=== PATIENT | male | born 1940 | race Caucasian/White ===

== ENCOUNTER 2022-08-09 14:56 | Inpatient (IN) | payer OTHER ==
[~2022-08-09] VITALS: Ht 127 cm; Wt 45.4 kg
[2022-08-09 15:09] VITALS: BP 117/47
[2022-08-09] MEDS ORDERED: PIPERACILLIN/TAZOBACTAM 3.375 GM in DEXTROSE 5% 50 ML IV ONE (15:10)
[2022-08-09] MEDS ORDERED: NACL 0.9% 1,000 ML IV ONE (15:10)
--- NOTE | 2022-08-09 15:29 | NUR ---
82 YO MALE BIBA FROM HOME FOR SACRAL WOUND AND PERINEAL RASH. 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 WOUND HAS CLOUDY PUSLIKE DISCHARGE. PT HAS BKA. PMH- HTN, DM, HIGH CHOLESTEROL MEDS- GABAPENTIN, NORCO, ATORVASTATION, CLOPIDOGREL, JANUVIA
[2022-08-09 16:01] LABS: BASOPHILS % (AUTO) 0.4 % (0.0-2.0); EOSINOPHILS # (AUTO) 0.1 K/uL (0-0.4); EOSINOPHILS % (AUTO) 0.6 % (0.0-4.0); HEMATOCRIT 31.9 % (36-52); HEMOGLOBIN 10.6 g/dL (12.0-18.0); LYMPHOCYTES # (AUTO) 1.6 K/uL (2.0-11.5); LYMPHOCYTES % (AUTO) 16.1 % (20.5-51.1); MEAN CORPUSCULAR HEMOGLOBIN 30 pg (27-31); MEAN CORPUSCULAR HGB CONC 33 g/dL (33-37); MONOCYTES # (AUTO) 0.6 K/uL (0.8-1.0); MONOCYTES % (AUTO) 6.1 % (1.7-9.3); NEUTROPHILS # (AUTO) 7.4 K/uL (1.8-7.7); NEUTROPHILS % (AUTO) 76.8 % (42.2-75.2); PLATELET COUNT (AUTO) 367 K/uL (140-450); RED BLOOD CELL COUNT(AUTO) 3.58 MIL/uL (4.20-6.10); RED CELL DISTRIBUTION WIDTH 16.1 % (11.6-13.7); WHITE BLOOD COUNT (AUTO) 9.7 K/uL (4.8-10.8)
--- NOTE | 2022-08-09 16:20 | NUR ---
PT TAKEN TO CT VIA [facility].
--- NOTE | 2022-08-09 16:39 | NUR ---
IV PULLED OUT DURING CT, PLACED NEW IV IN RAC
[2022-08-09 16:49] LABS: ALBUMIN 2.5 g/dL (3.4-5.0); ANION GAP 14.9 (8-16); ASPARTATE AMINOTRANSFERASE 51 U/L (15-37); CARBON DIOXIDE 21.2 mmol/L (21-32); CHLORIDE 109 mmol/L (98-107); CREATININE 1.4 mg/dL (0.6-1.3); GLUCOSE 224 mg/dL (74-106); POTASSIUM 5.1 mmol/L (3.5-5.1); SODIUM SERUM 140 mmol/L (136-145); TOTAL BILIRUBIN 0.5 mg/dL (0.0-1.0); UREA NITROGEN, BLOOD 53 mg/dL (7-18)
--- NOTE | 2022-08-09 17:15 | NUR ---
COVID SAMPLE OBTAINED AND SENT TO LAB
--- NOTE | 2022-08-09 17:31 | NUR ---
APS REPORT FILED. SPOKE WITH JULIUS [id number]
--- NOTE | 2022-08-09 18:11 | NUR ---
ATTEMPTED TO CONTACT PTS FOR UPDATE, NO ANSWER. UNABLE TO LEAVE VOICEMAIL
--- NOTE | 2022-08-09 19:30 | NUR ---
ASSUMED CARE OF PT AT THIS TIME. PT IN POSITION OF COMFORT. DENIES ANY PAIN OR NEEDS AT THIS TIME. UPDATED PT ON POC WITH FULL RETURNED VERBAL UNDERSTANDING. AWAITING BED ASSIGNMENT. VSS
--- NOTE | 2022-08-09 21:30 | NUR ---
Patient appears to be resting comfortably in bed. Vital Signs within normal limits. Respirations even and unlabored.
[2022-08-09 22:21] LABS: APPEARANCE,URINE CLEAR (CLEAR); BILIRUBIN,URINE NEGATIVE (NEGATIVE); BLOOD, URINE 1+ (NEGATIVE); COLOR,URINE YELLOW (YELLOW); LEUKOCYTE ESTERASE ,URINE TRACE (NEGATIVE); NITRITE, URINE NEGATIVE (NEGATIVE); PH,URINE 5.5 (5.0-9.0); UGLUCOSE NEGATIVE (NEGATIVE)
[2022-08-09 22:30] LABS: URINE AMORPHOUS URATE 1+ /HPF (None Seen)
[2022-08-10] MEDS ORDERED: VANCOMYCIN PER PHARMACY MC PRN (00:10)
[2022-08-10] MEDS ORDERED: MAGNESIUM OXIDE 400 MG TAB PO PRN (00:10)
[2022-08-10] MEDS ORDERED: MAG SULF 2000 MG/WATER PREMIX 50 ML IV PRN (00:10)
[2022-08-10] MEDS ORDERED: POTASSIUM CHLORIDE 10 MEQ TABER PO PRN (00:10)
[2022-08-10] MEDS ORDERED: ACETAMINOPHEN 325 MG TAB PO PRN (00:10)
[2022-08-10] MEDS ORDERED: MORPHINE SULFATE 4 MG/ML SYR IVP PRN (00:10)
[2022-08-10] MEDS ORDERED: ONDANSETRON 4 MG/2 ML VIAL IVP PRN (00:10)
[2022-08-10] MEDS ORDERED: KCL 20 MEQ/WATER INJ PREMIX 200 ML IV PRN (00:10)
[2022-08-10] MEDS ORDERED: HYDROcodone/APAP 5/325 MG 1 TAB TAB PO PRN (00:10)
--- NOTE | 2022-08-10 00:30 | NUR ---
Patient appears to be resting comfortably in bed. Vital Signs within normal limits. Respirations even and unlabored.
[2022-08-10] MEDS: NACL 0.9% 1,000 ML IV SCH ×2 (01:00→11:42)
[2022-08-10] MEDS ORDERED: VANCOMYCIN 500 MG in DEXTROSE 5% 100 ML IV SCH (02:00)
--- NOTE | 2022-08-10 02:03 | NUR ---
PT CLEANED, NEW DRESSING PLACED TO COCCYX. REPOSITIONED AND WARM BLANKETS PROVIDED. VSS PT DENIES ANY PAIN AT THIS TIME.
[2022-08-10] MEDS ORDERED: cefTRIAXone 1,000 MG VIAL ONE (02:06)
--- NOTE | 2022-08-10 03:30 | NUR ---
Patient appears to be resting comfortably in bed. Vital Signs within normal limits. Respirations even and unlabored.
--- NOTE | 2022-08-10 05:00 | NUR ---
Patient appears to be resting comfortably in bed. Vital Signs within normal limits. Respirations even and unlabored.
--- NOTE | 2022-08-10 07:25 | NUR ---
Report received from PAULO Monk.
--- NOTE | 2022-08-10 07:25 | NUR ---
REPORT TO FOX BATES
--- NOTE | 2022-08-10 08:30 | NUR ---
Patient will be admitted to care of Dr. Nesbitt. Admited to Med/Surg. Will go to room 124B. Belongings list completed. Report to PAULO Mabry.
[2022-08-10] MEDS ORDERED: VANCOMYCIN 750 MG in DEXTROSE 5% 250 ML IV SCH (09:00)
--- NOTE | 2022-08-10 09:00 | NUR ---
Admitted from , with chief complaint of , 82 y/o ,Male, Appropriate, oriented to call light, bed, phone,television, bathroom, smoking policy, visiting hours, procedures, ID bracelet on. Belongings list checked. patient received from er via gurney by one of avel koenig/Duniax4 , vss , skin not intact , on iv fluid , on room air with right ac 20 keith iv intact , safety on place side rails up x3 , bed on lower position , call light within reach still under observe .
[2022-08-10 11:47] VITALS: BP 106/58
[2022-08-10] MEDS: SKINTEGRITY HYDROGEL TP SCH (13:56)
[2022-08-10] MEDS: Z-GUARD PASTE TP SCH (13:56)
[2022-08-10] MEDS: ALGINATE ROPE MC SCH (13:56)
--- NOTE | 2022-08-10 14:17 | NUR ---
NURSES NOTE PATIENT STILL THE SAME , DRESSING ON HIS WOUND DONE , STILL UNDER OBSERVE
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
--- NOTE | 2022-08-10 16:31 | NUR ---
PATIENT HAS BEEN SCREENED AND CATEGORIZED MODERATE NUTRITION RISK. PATIENT WILL BE SEEN WITHIN 3-5 DAYS OF ADMISSION. REVIEWED BY ARIC MEDINA RD
--- NOTE | 2022-08-10 16:33 | NUR ---
WOUND CARE EVALUATION NOTE: SKIN ASSESSMENT DONE ON THIS 82 Y/O PT ADMITTED WITH PRESSURE INJURIES. WOUND HX OBTAIN FROM AC. PT. WITH CHRONIC WOUNDS, DOES WOUND CARE BY HERSELF, NO HOME HEALTH FOR WOUND CARE. POC EXPLAIN TO PT AND , RECOMMEND SURGEON AND UROLOGIST SACRAL DEBRIDEMENT AND POSSIBLE SUPRAPUBIC CATH. ALSO RECOMMEND SHORT TERM SNF FOR WOUND CARE. POC DISCUSSED WITH DR. SONG. AT STATION. POC DISCUSSED WITH PT. WHO SPEAKS GEORGIAN AND VERBALIZES UNDERSTAND. ELADIO, PT, TRANSLATE ABOVE INFORMATION IN MALTESE AND VERBALIZES UNDERSTANDING. PT IS AWAKE, MADE NEEDS KNOW VERBALLY. ABLE TO TURN AND REPOSITION. SKIN IS WARM AND MOIST, BILATERAL LOWER EXTREMITY AKA. F/C PATENT. POC DISCUSSED WITH PRIMARY RN. INTEGUMENTARY: -LIPS ARE DRY, INTACT -SIMULATION TECH RELATED ULCERATION TO PENIS 6X2X0.5CM FULL THICKNESS SKIN LOSS WOUND BED PINK, SMALL AMOUNT PURULENT DRAINAGE, MILD ODOR, SURENDRA-WOUND SKIN MOIST, PAIN 0/10 -PRESSURE INJURY STAGE 4 SACROCOCCYX [id number], WOUND BED 100% RED WITH SCATTER YELLOW SLOUGH TISSUE, UNDERMINING 3OCLOCK TO 9 OCLOCK, 2CM DEEP, MOIST, MILD ODOR, WOUND EDGE FLAT WITH DTI, SURENDRA-WOUND SKIN UN-STAGEABLE EXYENDED TO RIGHT BUTTOCK 5X7CM,DENUDED SKIN WITH SURROUNDING DTI INDICATED FURTHER DAMAGE RECOMMENDATIONS: -SURGEON AND UROLOGIST CONSULT -CLEANSE PENIS ULCERATION WITH WOUND CLEANSING SOLUTION, PAT DRY, APPLY ALGINATE ROPE DRESSING AND COVER WITH DRY DRESSING SECURED WITH TAPE QD AND PRN IF SOILING -CLEANSE SACRALCOCCYX WOUND WITH WOUND CARE SOLUTION, PAT DRY, APPLY HYDRAGEL WITH OIL EMULSION DRESSING, PACK FROM UNDERMINING, APPLY Z GUARD TO SURENDRA-WOUND SKIN AND COVER WITH ABD PAD AND SECURE WITH TAPE CHANGE DAILY AND PRN IF SOILING -POSITIONING: TURN AND REPOSITION PATIENT Q 2H OR SOONER USE PILLOWS TO KEEP BONY PROMINENCES FROM DIRECT CONTACT WITH SURFACES USE REPOSITIONING WEDGES TO PROVIDE 30-DEGREE ANGLE FOR SIDE LYING POSITIONS OFFLOADING OR FOAM DRESSING TO ALL TUBING TO PREVENT MEDICAL DEVICES RELATED PRESSURE INJURY -RE-EVALUATING AND MANAGING INCONTINENCE MONITOR SKIN CONDITION DURING POSITION CHANGE DO NOT MASSAGE REDNESS, BONY PROMINENCES FREQUENT SURENDRA-CARE AND PROVIDE BARRIER CREAMS PRN IF SOILING MOISTURE CONTROL BY OFFER BED ROPER/URINAL /ABSORBENT PAD TO WICK AND HOLD MOISTURE KEEP SKIN DRY AND PROTECT FROM FRICTION -MANAGE FRICTION/SHEAR/MOBILITY KEEP HOB AT THE LOWEST LEVEL OF ELEVATION NO MORE THAN 30-DEGREE UNLESS OTHERWISE CONTRAINDICATED USE LIFT SHEET OR TRANSFER DEVICE TO MOVE PATIENT AND PREVENT LATERAL SHEER. PROTECT HEELS, ELBOWS BONY PROMINENCES WITH SKIN BERRIES OR FOAM DRESSING IF EXPOSED TO FRICTION OFFLOAD BILATERAL HEELS BY PLACING PILLOWS UNDER CALVES AT ALL TIMES, UNLESS OTHERWISE CONTRAINDICATED -PRESSURE REDISTRIBUTION SURFACE THERAPY TANK MATTRESS -NUTRITION: PLEASE FOLLOW RD RECOMMENDATIONS AND OFFER NUTRITION SUPPLEMENTS IF ORDERED.
[2022-08-10 17:22] VITALS: BP 140/68
--- NOTE | 2022-08-10 17:53 | NUR ---
NURSES NOTE PATIENT A/OX4 , VSS , MED SURGE , DRESSING ON HIS WOUND DONE , NPO EXCEPT MEDS ON IV FLUID N/S 0.9 75CC/H , STILL UNDER OBSERVE.
--- NOTE | 2022-08-10 19:32 | NUR ---
REPORT GIVEN TO RED BATES , ALL HER QUESTION ANSWER .
--- NOTE | 2022-08-10 19:33 | NUR ---
RECEIVED PT FROM MORNING SHIFT NURSE. PT IS AOX2-3, AND BEDBOUND. PT IS ON ROOM AIR AND ON NPO EXCEPT MEDS. PT HAS KILPATRICK CATHETER AND HAS IV ON RIGHT AC GAUGE 20 SALINE LOCK AND LEFT HAND GAUGE 20 RUNNING WITH NS AT 80. PT HAS A BELOW THE KNEE AMPUTATION AND HAS WOUND ON SACRAL, SCROTUM AND PENIS. NO S/S RESPIRATORY DISTRESS NOTED. ALL SAFETY MEASURES IMPLEMENTED. BED IN LOW POSITION, BED WHEELS ON LOCKED AND CALL LIGHT WITHIN REACH.
[2022-08-10 20:00] VITALS: BP 117/47
--- NOTE | 2022-08-10 22:00 | NUR ---
FIXED PT'S IV PUMP DUE TO CONTINUOUSLY BEEPING. IV AND IV PUMP IS NOW RUNNING SMOOTHLY. NO COMPLAIN OF PAIN AT THIS TIME. NO S/S RESPIRATORY DISTRESS NOTED. ALL SAFETY MEASURES IMPLEMENTED. BED IN LOW POSITION, BED WHEELS ON LOCKED AND CALL LIGHT WITHIN REACH.
--- NOTE | 2022-08-11 00:52 | NUR ---
SCHEDULED AND PRESCRIBED MEDICATION WAS GIVEN TO PT PER MD ORDER. ALL SAFETY MEASURES IMPLEMENTED. BED IN LOW POSITION, BED WHEELS ON LOCKED AND CALL LIGHT WITHIN REACH.
[2022-08-11] MEDS: Z-GUARD PASTE TP SCH ×2 (00:53→13:49)
[2022-08-11] MEDS: NACL 0.9% 1,000 ML IV SCH ×2 (01:22→13:50)
--- NOTE | 2022-08-11 02:00 | NUR ---
PT IS SLEEPING. CHEST RISE AND FALL SYMMETRICALLY NOTED. RESPIRATION IS EVEN AND UNLABORED. ALL SAFETY MEASURES IMPLEMENTED. BED IN LOW POSITION, BED WHEELS ON LOCKED AND CALL LIGHT WITHIN REACH.
--- NOTE | 2022-08-11 04:00 | NUR ---
INSERTED NEW IV ON RIGHT WRIST GAUGE 22. IV IS NOW PATENT AND INTACT. NO COMPLAIN OF PAIN AT THIS TIME. ALL SAFETY MEASURES IMPLEMENTED. BED IN LOW POSITION, BED WHEELS ON LOCKED AND CALL LIGHT WITHIN REACH.
[2022-08-11 05:35] LABS: BASOPHILS % (AUTO) 0.4 % (0.0-2.0); EOSINOPHILS # (AUTO) 0.1 K/uL (0-0.4); EOSINOPHILS % (AUTO) 0.9 % (0.0-4.0); HEMATOCRIT 27.6 % (36-52); HEMOGLOBIN 9.4 g/dL (12.0-18.0); LYMPHOCYTES # (AUTO) 1.4 K/uL (2.0-11.5); LYMPHOCYTES % (AUTO) 16.9 % (20.5-51.1); MEAN CORPUSCULAR HEMOGLOBIN 30 pg (27-31); MEAN CORPUSCULAR HGB CONC 34 g/dL (33-37); MEAN CORPUSCULAR VOLUME 88.4 fL (80-94); MONOCYTES # (AUTO) 0.5 K/uL (0.8-1.0); MONOCYTES % (AUTO) 6.4 % (1.7-9.3); NEUTROPHILS # (AUTO) 6.2 K/uL (1.8-7.7); NEUTROPHILS % (AUTO) 75.4 % (42.2-75.2); PLATELET COUNT (AUTO) 325 K/uL (140-450); RED BLOOD CELL COUNT(AUTO) 3.12 MIL/uL (4.20-6.10); RED CELL DISTRIBUTION WIDTH 15.8 % (11.6-13.7); WHITE BLOOD COUNT (AUTO) 8.2 K/uL (4.8-10.8)
[2022-08-11 06:33] LABS: ALBUMIN 2.3 g/dL (3.4-5.0); ANION GAP 14.1 (8-16); CARBON DIOXIDE 20.3 mmol/L (21-32); CHLORIDE 113 mmol/L (98-107); GLUCOSE 168 mg/dL (74-106); MAGNESIUM 2.1 mg/dL (1.8-2.4); POTASSIUM 4.4 mmol/L (3.5-5.1); SODIUM SERUM 143 mmol/L (136-145); TOTAL BILIRUBIN 0.2 mg/dL (0.0-1.0); UREA NITROGEN, BLOOD 38 mg/dL (7-18)
[2022-08-11 06:45] LABS: ASPARTATE AMINOTRANSFERASE 34 U/L (15-37)
--- NOTE | 2022-08-11 07:30 | NUR ---
PT IS STABLE. ENDORSED PT TO MORNING SHIFT NURSE FOR CONTINUITY OF CARE.
[2022-08-11 08:00] VITALS: BP 136/61
[2022-08-11] MEDS: SKINTEGRITY HYDROGEL TP SCH (13:49)
[2022-08-11] MEDS: ALGINATE ROPE MC SCH (13:49)
[2022-08-11 16:00] VITALS: BP 136/61
[2022-08-11] MEDS: VANCOMYCIN 1,000 MG in DEXTROSE 5% 250 ML IV SCH (16:12)
--- NOTE | 2022-08-11 19:30 | NUR ---
ENDORSED A.M NURSE FOR CONTINUITY OF CARE. DAUGHTER THERESE AT BEDSIDE. PT A/OX1-2 CONFUSED. DAUGHTER STATES GIVING HIM MEDS TO CALM HI DOWN MAKES HIM MORE RESTLESS AND CONFUSED. REMINDED TO NOT PULL AT LINES. LINES WRAPPED IN LUIS F WRAP. DENIES PAIN. SAFETY PRECAUTIONS IN PLACE.
[2022-08-11 20:00] VITALS: BP 133/58
[2022-08-12] MEDS: Z-GUARD PASTE TP SCH ×2 (01:00→15:47)
[2022-08-12] MEDS: NACL 0.9% 1,000 ML IV SCH ×2 (02:10→15:46)
[2022-08-12 06:07] LABS: BASOPHILS % (AUTO) 0.4 % (0.0-2.0); EOSINOPHILS # (AUTO) 0.1 K/uL (0-0.4); EOSINOPHILS % (AUTO) 0.9 % (0.0-4.0); HEMATOCRIT 26.6 % (36-52); HEMOGLOBIN 9.1 g/dL (12.0-18.0); LYMPHOCYTES # (AUTO) 1.3 K/uL (2.0-11.5); LYMPHOCYTES % (AUTO) 19.4 % (20.5-51.1); MEAN CORPUSCULAR HEMOGLOBIN 30 pg (27-31); MEAN CORPUSCULAR HGB CONC 34 g/dL (33-37); MEAN CORPUSCULAR VOLUME 88.3 fL (80-94); MONOCYTES # (AUTO) 0.5 K/uL (0.8-1.0); MONOCYTES % (AUTO) 7.9 % (1.7-9.3); NEUTROPHILS # (AUTO) 4.8 K/uL (1.8-7.7); NEUTROPHILS % (AUTO) 71.4 % (42.2-75.2); PLATELET COUNT (AUTO) 326 K/uL (140-450); RED BLOOD CELL COUNT(AUTO) 3.01 MIL/uL (4.20-6.10); RED CELL DISTRIBUTION WIDTH 15.6 % (11.6-13.7); WHITE BLOOD COUNT (AUTO) 6.8 K/uL (4.8-10.8)
[2022-08-12 06:56] LABS: ALBUMIN 2.3 g/dL (3.4-5.0); ANION GAP 12.9 (8-16); ASPARTATE AMINOTRANSFERASE 24 U/L (15-37); CARBON DIOXIDE 21.3 mmol/L (21-32); CHLORIDE 114 mmol/L (98-107); CREATININE 0.8 mg/dL (0.6-1.3); GLUCOSE 117 mg/dL (74-106); MAGNESIUM 1.8 mg/dL (1.8-2.4); POTASSIUM 4.2 mmol/L (3.5-5.1); SODIUM SERUM 144 mmol/L (136-145); TOTAL BILIRUBIN 0.4 mg/dL (0.0-1.0); UREA NITROGEN, BLOOD 24 mg/dL (7-18)
--- NOTE | 2022-08-12 07:30 | NUR ---
ENDORSED TO RETURNING A.M NURSE PT PULLED IV LINE OUT AT 0640. REMAINS SAME. RELINQUISHED CARE OF PT AT THIS TIME.
[2022-08-12 08:00] VITALS: BP 155/86
[2022-08-12] MEDS: VANCOMYCIN 1,000 MG in DEXTROSE 5% 250 ML IV SCH (09:31)
[2022-08-12] MEDS: SKINTEGRITY HYDROGEL TP SCH (15:46)
[2022-08-12] MEDS: ALGINATE ROPE MC SCH (15:46)
[2022-08-12 16:00] VITALS: BP 145/70
--- NOTE | 2022-08-12 22:15 | NUR ---
CT ABDOMEN AND PELVIS WITHOUT CONTRAST DONE. PATIENT AWAKE ON ROOM AIR. NO SOB. BREATHING REGULAR NON LABORED. DENIES PAIN. AFEBRILE. CALL LIGHT WITHIN REACH. SAFETY MEASURES IN PLACE.
[2022-08-13] VITALS: BP 132/58
[2022-08-13] MEDS: Z-GUARD PASTE TP SCH ×2 (01:11→14:31)
[2022-08-13] MEDS: NACL 0.9% 1,000 ML IV SCH ×2 (03:10→15:40)
[2022-08-13 03:42] LABS: BASOPHILS % (AUTO) 0.3 % (0.0-2.0); EOSINOPHILS # (AUTO) 0.1 K/uL (0-0.4); EOSINOPHILS % (AUTO) 1.7 % (0.0-4.0); HEMATOCRIT 28.2 % (36-52); HEMOGLOBIN 9.4 g/dL (12.0-18.0); LYMPHOCYTES # (AUTO) 1.9 K/uL (2.0-11.5); MEAN CORPUSCULAR HEMOGLOBIN 30 pg (27-31); MEAN CORPUSCULAR HGB CONC 34 g/dL (33-37); MEAN CORPUSCULAR VOLUME 88.5 fL (80-94); MONOCYTES # (AUTO) 0.7 K/uL (0.8-1.0); NEUTROPHILS # (AUTO) 4.6 K/uL (1.8-7.7); PLATELET COUNT (AUTO) 315 K/uL (140-450); RED BLOOD CELL COUNT(AUTO) 3.18 MIL/uL (4.20-6.10); RED CELL DISTRIBUTION WIDTH 16.1 % (11.6-13.7); WHITE BLOOD COUNT (AUTO) 7.4 K/uL (4.8-10.8)
[2022-08-13 04:00] LABS: ALBUMIN 2.2 g/dL (3.4-5.0); ANION GAP 14.1 (8-16); ASPARTATE AMINOTRANSFERASE 22 U/L (15-37); CARBON DIOXIDE 19.6 mmol/L (21-32); CHLORIDE 115 mmol/L (98-107); CREATININE 0.8 mg/dL (0.6-1.3); GLUCOSE 102 mg/dL (74-106); MAGNESIUM 1.6 mg/dL (1.8-2.4); POTASSIUM 3.7 mmol/L (3.5-5.1); SODIUM SERUM 145 mmol/L (136-145); TOTAL BILIRUBIN 0.3 mg/dL (0.0-1.0); UREA NITROGEN, BLOOD 17 mg/dL (7-18)
[2022-08-13 04:31] LABS: PROTHROMBIN TIME 11.5 secs (10.8-13.4)
--- NOTE | 2022-08-13 07:46 | NUR ---
ENDORSED TO AM NURSE FOR CONTINUITY OF CARE. PATIENT STABLE. FOR EGD TODAY UNDER DR GUEVARA. PRE OP CHECKLIST DONE.
[2022-08-13 08:00] VITALS: BP 110/40
[2022-08-13] MEDS: VANCOMYCIN 1,000 MG in DEXTROSE 5% 250 ML IV SCH (09:35)
[2022-08-13] MEDS ORDERED: MIDAZOLAM 2 MG/2 ML VIAL ONE (09:38)
[2022-08-13] MEDS ORDERED: fentaNYL citrate 0.05 MG/ML VIAL ONE (09:38)
[2022-08-13] MEDS ORDERED: fentaNYL citrate 0.05 MG/ML VIAL IVP ONE (10:45)
[2022-08-13] MEDS ORDERED: MIDAZOLAM 2 MG/2 ML VIAL IVP ONE (10:45)
[2022-08-13 13:07] VITALS: BP 133/71
[2022-08-13] MEDS: ALGINATE ROPE MC SCH (14:30)
[2022-08-13] MEDS: SKINTEGRITY HYDROGEL TP SCH (14:31)
[2022-08-13] MEDS ORDERED: TPN PER PHARMACY MC PRN (15:05)
[2022-08-13 16:00] VITALS: BP 145/70
[2022-08-13] MEDS: LANSOPRAZOLE 30 MG CAPDR PO SCH (17:05)
[2022-08-13 20:00] VITALS: BP 123/66
[2022-08-13] MEDS: SUCRALFATE 1 GM TAB PO SCH (20:39)
[2022-08-14] MEDS: Z-GUARD PASTE TP SCH ×2 (01:16→13:00)
--- NOTE | 2022-08-14 01:28 | NUR ---
COVERING RN WAS INFORMED OF IV MEDICATION DUE. [email or web address]
[2022-08-14] MEDS: NACL 0.9% 1,000 ML IV SCH ×2 (04:10→16:52)
--- NOTE | 2022-08-14 04:12 | NUR ---
PATIENT WAS WASHED AND KEPT CLEAN. NEW DRESSING WERE APPLIED TO WOUNDS TO THE SACRAL, SCROTUM, AND RIGHT BUTTOCKS. [email or web address]
[2022-08-14 06:11] LABS: BASOPHILS % (AUTO) 0.5 % (0.0-2.0); EOSINOPHILS # (AUTO) 0.1 K/uL (0-0.4); EOSINOPHILS % (AUTO) 1.1 % (0.0-4.0); HEMATOCRIT 24.6 % (36-52); HEMOGLOBIN 8.3 g/dL (12.0-18.0); LYMPHOCYTES # (AUTO) 1.9 K/uL (2.0-11.5); LYMPHOCYTES % (AUTO) 26.3 % (20.5-51.1); MEAN CORPUSCULAR HEMOGLOBIN 30 pg (27-31); MEAN CORPUSCULAR HGB CONC 34 g/dL (33-37); MONOCYTES # (AUTO) 0.6 K/uL (0.8-1.0); MONOCYTES % (AUTO) 8.3 % (1.7-9.3); NEUTROPHILS # (AUTO) 4.7 K/uL (1.8-7.7); NEUTROPHILS % (AUTO) 63.8 % (42.2-75.2); PLATELET COUNT (AUTO) 290 K/uL (140-450); RED BLOOD CELL COUNT(AUTO) 2.77 MIL/uL (4.20-6.10); RED CELL DISTRIBUTION WIDTH 15.9 % (11.6-13.7); WHITE BLOOD COUNT (AUTO) 7.3 K/uL (4.8-10.8)
[2022-08-14 06:23] LABS: ANION GAP 12.1 (8-16); ASPARTATE AMINOTRANSFERASE 18 U/L (15-37); CARBON DIOXIDE 20.8 mmol/L (21-32); CHLORIDE 114 mmol/L (98-107); CREATININE 1.3 mg/dL (0.6-1.3); GLUCOSE 116 mg/dL (74-106); MAGNESIUM 1.5 mg/dL (1.8-2.4); POTASSIUM 3.9 mmol/L (3.5-5.1); SODIUM SERUM 143 mmol/L (136-145); TOTAL BILIRUBIN 0.3 mg/dL (0.0-1.0); UREA NITROGEN, BLOOD 16 mg/dL (7-18)
[2022-08-14] MEDS ORDERED: BOWEL EVACUANT DRINK 4,000 ML PDS PO SCH (07:00)
--- NOTE | 2022-08-14 07:04 | NUR ---
ENDORSED TO SANCHEZ BATES, PATIENT WAS STABLE DURING SHIFT REPORT. [email or web address]
[2022-08-14] MEDS: LANSOPRAZOLE 30 MG CAPDR PO SCH ×2 (07:30→16:51)
[2022-08-14 08:00] VITALS: BP 120/47
[2022-08-14] MEDS: VANCOMYCIN 1,000 MG in DEXTROSE 5% 250 ML IV SCH (09:00)
[2022-08-14] MEDS: SUCRALFATE 1 GM TAB PO SCH ×2 (09:00→20:55)
[2022-08-14] MEDS: SKINTEGRITY HYDROGEL TP SCH (13:00)
[2022-08-14] MEDS: ALGINATE ROPE MC SCH (13:00)
[2022-08-14] MEDS ORDERED: VANCOMYCIN PER PHARMACY MC PRN (14:25)
[2022-08-14 16:00] VITALS: BP 96/39
--- NOTE | 2022-08-14 19:30 | NUR ---
ENDORSE PATIENT IN STABLE CONDITION TO PM SHIFT NURSE WHILE PICC LINE NURSE IS HERE FOR PICC PLACEMENT PROCEDURE. CHEST X-RAY I VIEW ORDERED
--- NOTE | 2022-08-14 19:31 | NUR ---
RECEIVED REPORT FROM DAY SHIFT NURSE SANCHEZ FOR CONTINUITY OF CARE. PT AWAKE. PICC LINE NURSE AT BEDSIDE. RESPIRATIONS EVEN AND UNLABORED ON RA. WITH KILPATRICK CATHETER IN PLACE, INTACT AND DRAINING WELL. PT WITH SACCRAL AND PERINEAL WOUNDS COVERED WITH DRESSING. WITH HX OF BBKA. CALL LIGHT WITHIN REACH. SAFETY PRECAUTIONS IN PLACE.
--- NOTE | 2022-08-14 19:45 | NUR ---
JOSEFINA PICC LINE GOOD TO USE PER PICC LINE NURSE. CONFIRMED WITH X-RAY.
[2022-08-14] MEDS ORDERED: MULTIVITAMIN-12 10 ML in DEXTROSE 50% 600 ML, AMINO ACIDS 8.5% 600 ML, FAT EMULSION 20%... IV SCH ×4 (20:00)
--- NOTE | 2022-08-14 20:46 | NUR ---
PROCEDURES RESCHEDULED FOR TU 0730AM PER DR RG.
--- NOTE | 2022-08-14 20:55 | NUR ---
ADMINISTERED DUE MED. PT TOLERATED WELL.
--- NOTE | 2022-08-14 22:00 | NUR ---
Patient's Plan of Care was discussed and reviewed with TIMMY NIXON
--- NOTE | 2022-08-14 22:25 | NUR ---
TPN STARTED BY PAULO REHMAN. PT TOLERATED WELL.
[2022-08-15] VITALS: BP 116/48
[2022-08-15] MEDS: BLOOD GLUCOSE MONITORING 1 DEV DEV MC SCH ×4 (00:20→17:47)
[2022-08-15] MEDS: Z-GUARD PASTE TP SCH ×2 (00:21→13:00)
--- NOTE | 2022-08-15 00:21 | NUR ---
BLOOD SUGAR CHECK DONE. NO COVERAGE NEEDED.
--- NOTE | 2022-08-15 05:21 | NUR ---
NO COVERAGE NEEDED FOR BS 121. DID MORNING CARE. PT HAD BM. WOUND CARE DONE. PT TOLERATED WELL. NO DISTRESS NOTED. SAFETY PRECAUTIONS IN PLACE.
[2022-08-15 05:52] LABS: BASOPHILS % (AUTO) 0.4 % (0.0-2.0); EOSINOPHILS # (AUTO) 0.2 K/uL (0-0.4); EOSINOPHILS % (AUTO) 1.9 % (0.0-4.0); HEMATOCRIT 23.9 % (36-52); LYMPHOCYTES # (AUTO) 2.6 K/uL (2.0-11.5); LYMPHOCYTES % (AUTO) 31.9 % (20.5-51.1); MEAN CORPUSCULAR HEMOGLOBIN 30 pg (27-31); MEAN CORPUSCULAR HGB CONC 34 g/dL (33-37); MEAN CORPUSCULAR VOLUME 88.7 fL (80-94); MONOCYTES # (AUTO) 0.7 K/uL (0.8-1.0); MONOCYTES % (AUTO) 8.4 % (1.7-9.3); NEUTROPHILS # (AUTO) 4.6 K/uL (1.8-7.7); NEUTROPHILS % (AUTO) 57.4 % (42.2-75.2); PLATELET COUNT (AUTO) 268 K/uL (140-450); RED BLOOD CELL COUNT(AUTO) 2.69 MIL/uL (4.20-6.10); RED CELL DISTRIBUTION WIDTH 15.7 % (11.6-13.7); WHITE BLOOD COUNT (AUTO) 8.1 K/uL (4.8-10.8)
[2022-08-15 06:18] LABS: ALBUMIN 1.9 g/dL (3.4-5.0); ANION GAP 12.4 (8-16); ASPARTATE AMINOTRANSFERASE 18 U/L (15-37); CARBON DIOXIDE 19.5 mmol/L (21-32); CHLORIDE 110 mmol/L (98-107); CREATININE 1.9 mg/dL (0.6-1.3); GLUCOSE 126 mg/dL (74-106); POTASSIUM 3.9 mmol/L (3.5-5.1); SODIUM SERUM 138 mmol/L (136-145); TOTAL BILIRUBIN 0.3 mg/dL (0.0-1.0); UREA NITROGEN, BLOOD 20 mg/dL (7-18)
[2022-08-15] MEDS: LANSOPRAZOLE 30 MG CAPDR PO SCH ×2 (06:44→16:30)
--- NOTE | 2022-08-15 07:30 | NUR ---
ENDORSED PT TO DAY SHIFT NURSE SANCHEZ FOR CONTINUITY OF CARE. ALL NEEDS MET THROUGHOUT SHIFT. PT IS IN STABLE CONDITION.
[2022-08-15 08:00] VITALS: BP 97/40
[2022-08-15] MEDS: SUCRALFATE 1 GM TAB PO SCH ×2 (09:16→20:54)
[2022-08-15 10:33] LABS: CHOL/HDL RATIO 3.2 (1-4.5)
[2022-08-15] MEDS: INSULIN LISPRO SLIDING SCALE 100 UNITS/ML VIAL SUBQ PRN (12:10)
[2022-08-15] MEDS: SKINTEGRITY HYDROGEL TP SCH (13:00)
[2022-08-15] MEDS: ALGINATE ROPE MC SCH (13:00)
--- NOTE | 2022-08-15 14:07 | NUR ---
08/15/22 RD INITIAL ASSESSMENT COMPLETED PLEASE REFER TO NUTRITION ASSESSMENT UNDER CARE ACTIVITY FOR ESTIMATED NUTRITIONAL NEEDS. 1. CONTINUE FULL LIQUID DIET TOLERATED PER MD 2. RECOMMEND GLUCERNA 1XDAY TO OPTIMIZE NUTRITIONAL NEEDS (PROVIDES 220 KCAL AND 10 GM PROTEIN DAILY) 3. RECOMMEND ADDING CCHO, 60GM TO FULL LIQUID DIET 4. WHEN/IF READY TO ADVANCE DIET, RECOMMEND CCHO, [address] GM DI[address] TOL[address]ATED 5. RD PROVIDED NUTRITION EDUCATION AND HANDOUTS ON DM 6. RD TO FOLLOW-UP 3-5 DAYS, MODERATE RISK REVIEWED BY ARIC MEDINA RD
[2022-08-15 16:00] VITALS: BP 138/58
--- NOTE | 2022-08-15 19:33 | NUR ---
ENDORSE PATIENT IN STABLE CONDITION TO PM SHIFT NURSE WHILE TPN INFUSING VIA JOSEFINA PICC @60ML/HR; WOUND DRESSING DONE
--- NOTE | 2022-08-15 19:34 | NUR ---
RECEIVED REPORT FROM DAY SHIFT NURSE SANCHEZ FOR CONTINUITY OF CARE. PT SLEEPING, FAMILY MEMBER AT BEDSIDE. RESPIRATIONS EVEN AND UNLABORED ON RA. KILPATRICK CATHETER IN PLACE, DRAINING WELL. JOSEFINA PICC LINE RUNNING TPN. PER PAULO BRADFORD, SCHEDULED PROCEDURE FOR TOMORROW CANCELLED PER DR RG. CALL LIGHT WITHIN REACH. SAFETY PRECAUTIONS IN PLACE.
[2022-08-15] MEDS: MULTIVITAMIN-12 10 ML in DEXTROSE 50% 665 ML, AMINO ACIDS 8.5% 665 ML, FAT EMULSION 20%... IV SCH ×4 (19:35)
[2022-08-15 20:00] VITALS: BP 112/46
--- NOTE | 2022-08-15 21:03 | NUR ---
ADMINISTERED DUE MED. PT TOLERATED WELL.
[2022-08-16] MEDS: BLOOD GLUCOSE MONITORING 1 DEV DEV MC SCH ×4 (00:42→18:22)
[2022-08-16] MEDS: INSULIN LISPRO SLIDING SCALE 100 UNITS/ML VIAL SUBQ PRN ×3 (00:43→18:23)
[2022-08-16] MEDS: Z-GUARD PASTE TP SCH ×2 (00:45→13:25)
--- NOTE | 2022-08-16 00:46 | NUR ---
BLOOD SUGAR CHECK DONE. SLIDING SCALE INSULIN GIVEN. WOUND CARE DONE. PT TOLERATED WELL.
[2022-08-16 04:00] VITALS: BP 98/44
--- NOTE | 2022-08-16 05:26 | NUR ---
DID MORNING CARE. PT TOLERATED WELL. HAD BM. PT REMAINED CLEAN AND DRY. NO INSULIN COVERAGE ADMINISTERED FOR BS 146.
[2022-08-16] MEDS: LANSOPRAZOLE 30 MG CAPDR PO SCH ×2 (06:31→16:31)
[2022-08-16 06:32] LABS: MAGNESIUM 2.1 mg/dL (1.8-2.4); PHOSPHORUS 2.3 mg/dL (2.5-4.9)
[2022-08-16 07:00] LABS: ALBUMIN 1.8 g/dL (3.4-5.0); ANION GAP 12.1 (8-16); ASPARTATE AMINOTRANSFERASE 19 U/L (15-37); CARBON DIOXIDE 19.1 mmol/L (21-32); CHLORIDE 104 mmol/L (98-107); CREATININE 2.2 mg/dL (0.6-1.3); GLUCOSE 140 mg/dL (74-106); POTASSIUM 4.2 mmol/L (3.5-5.1); SODIUM SERUM 131 mmol/L (136-145); TOTAL BILIRUBIN 0.4 mg/dL (0.0-1.0); UREA NITROGEN, BLOOD 35 mg/dL (7-18)
--- NOTE | 2022-08-16 07:18 | NUR ---
ASSUMED CONTINUITY OF CARE. INITIAL ASSESSMENT DONE. KEEP COMFORTABLE ON BED. FALL PRECAUTION APPLIED. CALL LIGHT WITHIN REACH.
--- NOTE | 2022-08-16 07:18 | NUR ---
ENDORSED PT TO DAY SHIFT NURSE ALMA ROSA FOR CONTINUITY OF CARE. ALL NEEDS MET THROUGHOUT SHIFT. PT IS IN STABLE CONDITION.
[2022-08-16 08:00] VITALS: BP 97/43
[2022-08-16] MEDS: SUCRALFATE 1 GM TAB PO SCH ×2 (09:00→21:06)
[2022-08-16 12:00] VITALS: BP 127/52
[2022-08-16] MEDS ORDERED: FUROSEMIDE 40 MG/4 ML VIAL IVP SCH (12:30)
[2022-08-16] MEDS ORDERED: ALBUMIN HUMAN 25% 100 ML IV SCH (12:30)
--- NOTE | 2022-08-16 12:30 | NUR ---
WOUND CARE PROVIDED WITH ASSISTANCE FROM MARCELLE SIMEON. TOLERATED WELL.
[2022-08-16] MEDS: ALGINATE ROPE MC SCH (13:24)
[2022-08-16] MEDS: SKINTEGRITY HYDROGEL TP SCH (13:24)
--- NOTE | 2022-08-16 14:00 | NUR ---
LASIX 40 MG IVP GIVEN BY RN PER MD ORDER.
[2022-08-16 16:00] VITALS: BP 115/97
--- NOTE | 2022-08-16 19:28 | NUR ---
RECEIVED ENDORSEMENT FROM ALMA ROSA WARNER, PATIENT WAS STABLE DURING SHIFT REPORT. PATIENT WAS NOTED AWAKE AND ORIENTED X 3 ON ROOM AIR. PATIENT'S REQUEST AND DOCUMENT SHOWING PATIENT IS IN THE HOSPITAL. WAS ADVISED TO COME IN THE AM TO MEDICAL RECORDS FOR THIS REQUEST. COPY OF HER ID IN THE CHART.PATIENT IN BED SLEEPING BUT TO AWAKEN. PATIENT IS AWARE OF WHY HE IS IN THE HOSPITAL. PATIENT IS ON TPN AN IT IS RUNNING WELL. KILPATRICK DRAINAGE IS YELLOW AND NO NOTED SEDIMENT. ROOM AIR WITHOUT DISTRESS. NO S/S OF PAIN/DISCOMFORT AT THIS TIME. PATIENT LANGUAGE OF CHOICE IS SERBIAN. PATIENT WAS KEPT CLEAN AND DRY AT THIS TIME. CALL LIGHT WITHIN REACH BED AT THE LOWEST LEVEL FOR SAFETY SIDE RAILS UP X 2 FOR ADJUSTMENTS AND SAFETY. [email or web address]
--- NOTE | 2022-08-16 19:28 | NUR ---
REPORT GIVEN TO ANDRADE JALLOH FOR CONTINUITY OF CARE. TPN INFUSING WELL. IN STABLE CONDITION.
[2022-08-16] MEDS: MULTIVITAMIN-12 10 ML in DEXTROSE 50% 665 ML, AMINO ACIDS 8.5% 665 ML, FAT EMULSION 20%... IV SCH ×4 (21:06)
--- NOTE | 2022-08-16 23:37 | NUR ---
PATIENT NOTED IN BED ASLEEP. NURSING WAS NOTED TO FOLLOW STRICT I & O. NO NOTED S/S OF PAIN/DISCOMFORT. NO NOTED S/S OF RESPIRATORY DISTRESS. [email or web address]
[2022-08-17] MEDS: BLOOD GLUCOSE MONITORING 1 DEV DEV MC SCH ×2 (00:28→06:10)
[2022-08-17] MEDS: INSULIN LISPRO SLIDING SCALE 100 UNITS/ML VIAL SUBQ PRN ×3 (00:29→16:45)
[2022-08-17] MEDS: Z-GUARD PASTE TP SCH ×2 (00:29→13:00)
--- NOTE | 2022-08-17 02:41 | NUR ---
PATIENT IS ASLEEP IN BED. CALL LIGHT WITHIN REACH. SIDE RAILS UP X 3. [email or web address]
[2022-08-17 04:00] VITALS: BP 92/49
--- NOTE | 2022-08-17 05:49 | NUR ---
PATIENT BLOOD SUGAR WAS COLLECTED AND COVERAGE NEEDED. BLOOD PRESSURE WAS RE DONE AND NOTED HIGHER 92/49. PATIENT IN BED ASLEEP EASY TO WAKE. [email or web address]
[2022-08-17] MEDS: LANSOPRAZOLE 30 MG CAPDR PO SCH ×2 (06:53→16:44)
--- NOTE | 2022-08-17 07:10 | NUR ---
ASSUMED CONTINUITY OF CARE. INITIAL ASSESSMENT DONE. F/C INTACT, PATENT. NO C/O PAIN OR DISCOMFORT. CALL LIGHT KEPT WITHIN REACH.
[2022-08-17 07:59] LABS: PHOSPHORUS 2.1 mg/dL (2.5-4.9)
[2022-08-17 08:00] VITALS: BP 111/41
[2022-08-17 08:13] LABS: ALBUMIN 2.1 g/dL (3.4-5.0); ANION GAP 13.9 (8-16); CHLORIDE 102 mmol/L (98-107); CREATININE 2.7 mg/dL (0.6-1.3); GLUCOSE 149 mg/dL (74-106); POTASSIUM 3.9 mmol/L (3.5-5.1); SODIUM SERUM 133 mmol/L (136-145); TOTAL BILIRUBIN 0.3 mg/dL (0.0-1.0); UREA NITROGEN, BLOOD 44 mg/dL (7-18)
--- NOTE | 2022-08-17 08:50 | NUR ---
WOUND CARE RE-EVALUATION NOTE: PT. RESTING IN BED, NO C/O DISCOMFORT. PER SURGEON'S NOTE PT. NOT A CANDIDATE FOR SURGICAL PROCEDURES/DEBRIDEMENT/DIVERTING COLOSTOMY " Due to cardiac risk, cardiology does not recommend general anesthesia, no plans for laparoscopic diverting colostomy.No plans for surgical debridement of sacral wound at this time..." SACRAL WOUND AND PENILE ULCERATION RESPONDING TO TX SLOWLY. CONTINUE LOCAL WOUND TREATMENT WITH MORE SLOUGH TISSUE PRESENT TO WOUND BED/WOUND EDGE, DEEPER UNDERMINING/TUNNEL WOUND MAY ANTICIPATE. -ENGLISH COMPOSITION TEACHER RELATED ULCERATION TO PENIS 6X2X0.5CM FULL THICKNESS SKIN LOSS WOUND BED PINK, SMALL AMOUNT SEROUS DRAINAGE, NO ODOR, SURENDRA-WOUND SKIN MOIST, PAIN 0/10 -PRESSURE INJURY STAGE 4 SACROCOCCYX [id number], WOUND BED 75% RED GRANULATION TISSUE AND 25% YELLOW SLOUGH TISSUE TOWARD WOUND EDGE AND SCATTERED TO WOUND BED, UNDERMINING 3 OCLOCK TO 9 OCLOCK, 2CM DEEP, MOIST, MILD ODOR, WOUND EDGE FLAT WITH DTI, SURENDRA-WOUND SKIN UN-STAGEABLE EXTENDED TO RIGHT BUTTOCK 5X7CM,BLACK DENUDED SKIN AND SURROUNDING DTI INDICATED FURTHER DAMAGE
[2022-08-17 09:02] LABS: ASPARTATE AMINOTRANSFERASE 24 U/L (15-37)
[2022-08-17] MEDS: SUCRALFATE 1 GM TAB PO SCH ×2 (09:12→20:14)
[2022-08-17] MEDS ORDERED: SODIUM PHOSPHATE 15 MMOLE in NACL 0.9% 250 ML IV SCH (11:00)
[2022-08-17 12:00] VITALS: BP 111/41
[2022-08-17] MEDS: BLOOD GLUCOSE MONITORING 1 DEV DEV FS SCH ×3 (12:02→20:16)
[2022-08-17] MEDS: ALGINATE ROPE MC SCH (13:00)
[2022-08-17] MEDS: SKINTEGRITY HYDROGEL TP SCH (13:00)
--- NOTE | 2022-08-17 13:30 | NUR ---
WOUND CARE TX DONE.
[2022-08-17 16:00] VITALS: BP 122/44
[2022-08-17 18:00] VITALS: BP 122/44
--- NOTE | 2022-08-17 19:19 | NUR ---
REPORT GIVEN TO CATHI BATES FOR CONTINUITY OF CARE. REMAINS STABLE AT THIS TIME.
--- NOTE | 2022-08-17 19:20 | NUR ---
RECEIVED PATIENT IN BED AWAKE ALERT RESTING COMFORTABLY ON ROOM AIR. NO S/S OF RESPIRATORY DISTRESS. ABLE TO COMMUNICATE WITH HIS NEEDS. KILPATRICK CATHETER DRAINING CLEAR YELLOW URINE. PICC LINE NOTED ON THE RIGHT UPPER ARM. CALL LIGHT ON EASY REACH. NO COMPLAINTS OF PAIN AT THIS TIME. SAFETY PRECAUTIONS ARE IN PLACE.
--- NOTE | 2022-08-17 20:14 | NUR ---
ADMINISTERED SCHEDULED DUE MEDICATION.. WELL TOLERATED.
--- NOTE | 2022-08-17 20:18 | NUR ---
BLOOD SUGAR CHECKED WAS 143, NO INSULIN COVERAGE NEEDED.
[2022-08-18] MEDS: Z-GUARD PASTE TP SCH ×2 (01:00→12:31)
[2022-08-18 04:00] VITALS: BP 104/78
[2022-08-18] MEDS: BLOOD GLUCOSE MONITORING 1 DEV DEV FS SCH ×3 (06:43→17:24)
[2022-08-18 06:45] LABS: ALBUMIN 2.1 g/dL (3.4-5.0); ANION GAP 13.2 (8-16); ASPARTATE AMINOTRANSFERASE 51 U/L (15-37); CARBON DIOXIDE 24.4 mmol/L (21-32); CHLORIDE 103 mmol/L (98-107); CREATININE 2.9 mg/dL (0.6-1.3); GLUCOSE 99 mg/dL (74-106); MAGNESIUM 2.3 mg/dL (1.8-2.4); POTASSIUM 4.6 mmol/L (3.5-5.1); SODIUM SERUM 136 mmol/L (136-145); TOTAL BILIRUBIN 0.4 mg/dL (0.0-1.0); UREA NITROGEN, BLOOD 44 mg/dL (7-18)
--- NOTE | 2022-08-18 07:20 | NUR ---
RECEIVED REPORT FROM NIGHT NURSE CATHI FOR CONTINUITY OF CARE. INITIAL ASSESSMENT DONE. IVF INFUSING WELL. PICC LINE INTACT TO JOSEFINA. NO C/O PAIN OR DISCOMFORT. CALL LIGHT KEPT WITHIN REACH. WILL CONTINUE TO MONITOR.
--- NOTE | 2022-08-18 07:20 | NUR ---
RECEIVED REPORT FROM NIGHT NURSE ANDRADE FOR CONTINUITY OF CARE. INITIAL ASSESSMENT DONE. IVF INFUSING WELL. PICC LINE INTACT TO JOSEFINA. NO C/O PAIN OR DISCOMFORT. CALL LIGHT KEPT WITHIN REACH. WILL CONTINUE TO MONITOR. Addendum: 08/18/22 at 0831 by JOYCE BANEGAS LVN ENTERED WRONG DOCUMENTATION
--- NOTE | 2022-08-18 07:35 | NUR ---
BEDSIDE REPORT GIVEN TO NURSE OLSEN FOR CONTINUITY OF CARE. LAST BLOOD SUGAR WAS 93 NO COVERAGE GIVEN.
[2022-08-18 08:00] VITALS: BP 128/51
[2022-08-18] MEDS: SUCRALFATE 1 GM TAB PO SCH (09:42)
[2022-08-18] MEDS: LANSOPRAZOLE 30 MG CAPDR PO SCH ×2 (09:42→17:26)
[2022-08-18] MEDS: INSULIN LISPRO SLIDING SCALE 100 UNITS/ML VIAL SUBQ PRN (12:02)
[2022-08-18] MEDS: SKINTEGRITY HYDROGEL TP SCH (12:30)
[2022-08-18] MEDS: ALGINATE ROPE MC SCH (12:31)
--- NOTE | 2022-08-18 14:20 | NUR ---
PATIENT SEEN BY [facility]PPORT[facility]OSPICE.
--- NOTE | 2022-08-18 15:13 | NUR ---
POC DISCUSSED WITH GAMING COMMISSIONER DIRECTOR BEAU PER DIRECTOR PLAN FOR COMFORT CARE.
--- NOTE | 2022-08-18 15:30 | NUR ---
PATIENT SPOKE TO BRUSHER KIZZY FROM [facility].
[2022-08-18] MEDS ORDERED: PANT40EC PO (15:31)
[2022-08-18 16:00] VITALS: BP 118/47
--- NOTE | 2022-08-18 16:13 | NUR ---
08/18/22 RD FOLLOW UP COMPLETED PLEASE REFER TO NUTRITION ASSESSMENT UNDER CARE ACTIVITY FOR ESTIMATED NUTRITIONAL NEEDS. 1. CONTINUE CCHO 60 GM DIET, MECHANICAL SOFT DIET WITH GLUCERNA 1/DAY TOLERATED (PROVIDES 220 KCAL AND 10 GM PROTEIN DAILY) 2. MONITOR PO INTAKE AND NUTRITION RELATED LAB VALUES 3. RD TO FOLLOW-UP 7 DAYS, LOW RISK D/T PT TOLERATING CURRENT DIET AND RECEIVING NUTRITION SUPPLEMENT REVIEWED BY ARIC MEDINA RD
[2022-08-18 16:42] VITALS: BP 118/47
--- NOTE | 2022-08-18 18:07 | NUR ---
PICC LINE REMOVED INTACT. NO BLEEDING NOTED. WOUND CARE DONE.
--- NOTE | 2022-08-18 19:00 | NUR ---
PATIENT DISCHARGE TO HOME FOR HOSPICE CARE. TRANSPORTED BY [facility] PER SHAYLA. DISCHARGE PAPER WORK GIVEN AND SIGNED BY PATIENT. PERSONAL BELONGINGS TAKEN. ID BAND REMOVE. DISCHARGE PHOTOS TAKEN. IN STABLE CONDITION.
== END 2022-08-18 19:00 | disposition home or self-care (01) | DRG 673 ==
LOC: MED 14:56 → MMU 08-10 00:13 → MTU 08-10 06:35
PROVIDERS: ADMIT Hospitalist; ATTEND Hospitalist
PROC: 0DB78ZX Excision of Stomach, Pylorus, Via Natural or Artificial Opening Endoscopic, Diagnostic (ICD-10-PCS; 2022-08-14)
PROC: 02HV33Z Insertion of Infusion Device into Superior Vena Cava, Percutaneous Approach (ICD-10-PCS; 2022-08-14)
PROC: B548ZZA Ultrasonography of Superior Vena Cava, Guidance (ICD-10-PCS; 2022-08-14)
PROC: 0JB70ZZ Excision of Back Subcutaneous Tissue and Fascia, Open Approach (ICD-10-PCS; principal; 2022-08-15)
DX: T83.511A Infection and inflammatory reaction due to indwelling urethral catheter, initial encounter (principal); K25.4 Chronic or unspecified gastric ulcer with hemorrhage; N17.0 Acute kidney failure with tubular necrosis; E44.0 Moderate protein-calorie malnutrition; E11.52 Type 2 diabetes mellitus with diabetic peripheral angiopathy with gangrene; I96 Gangrene, not elsewhere classified; E87.1 Hypo-osmolality and hyponatremia; I42.9 Cardiomyopathy, unspecified; L89.159 Pressure ulcer of sacral region, unspecified stage; R82.81 Pyuria; E11.22 Type 2 diabetes mellitus with diabetic chronic kidney disease; N18.9 Chronic kidney disease, unspecified; I12.9 Hypertensive chronic kidney disease with stage 1 through stage 4 chronic kidney disease, or unspecified chronic kidney disease; E78.5 Hyperlipidemia, unspecified; Y84.8 Other medical procedures as the cause of abnormal reaction of the patient, or of later complication, without mention of misadventure at the time of the procedure; E83.39 Other disorders of phosphorus metabolism; D63.1 Anemia in chronic kidney disease; N40.0 Benign prostatic hyperplasia without lower urinary tract symptoms; R33.9 Retention of urine, unspecified; L98.499 Non-pressure chronic ulcer of skin of other sites with unspecified severity; Z68.28 Body mass index [BMI] 28.0-28.9, adult; Z20.822 Contact with and (suspected) exposure to COVID-19; Z89.511 Acquired absence of right leg below knee; Z89.512 Acquired absence of left leg below knee; Z93.3 Colostomy status; Y92.89 Other specified places as the place of occurrence of the external cause
CPT/HCPCS: 36415; 36600; 71045; 72192; 76770; 80053; 80202; 81001; 82465; 82803; 82948; 83605; 83735; 84100; 84478; 85025; 85610; 85730; 86677; 86886; 86900; 86901; 87040; 87070; 87075; 87081; 87086; 87186; 87205; 88305; 88312; 88313; 88342; 93005; 96365; 99285; A4649; A6248; A9153; J0696; J1815; J1940; J2250; J2543; J3010; J3370; J3475; J7030; J7060; P9046; Q0092